=== PATIENT | female | born 1960 | race Two or more races ===

== ENCOUNTER 2022-10-02 11:15 | Inpatient (IN) | payer OTHER ==
[~2022-10-02] VITALS: Ht 167.6 cm; Wt 128.4 kg
--- NOTE | 2022-10-02 14:10 | NUR ---
PATIENT ADMITTED FROM [facility] WITH ADMITTING DX IS ACUTE STROKE ACCOMPANIED BY 2 shop mechanic WITH BIJAL. AO X3, SHE CAN VERBALIZE MONTH BUT UNABLE SAY TODAY'S DATE, AND HER BIRTHDAY, HER SPEECH IS CLEAR. SHE DENIES NUMB OR HEADACHE, ABLE TO MOVE ALL EXTREMITIES SALIMETRICALLY. NOTICED A-FIB ON WOOD TILE INSTALLATION HELPER AND DR. LEACH AWARE OF IT. EKG HAS BEEN DONE. NEURO CHECK AND NHIS SCALE DONE. WILL CONTINUE TO MONITOR.
[2022-10-02] MEDS ORDERED: ACETAMINOPHEN 325 MG TABLET PO PRN (16:00)
[2022-10-02] MEDS ORDERED: ONDANSETRON HCL/PF 4 MG/2 ML VIAL IVP PRN (16:00)
[2022-10-02 16:35] LABS: BASOPHILS % (AUTO) 0.3 % (0.0-2.0); EOSINOPHILS % (AUTO) 0.1 % (0.0-6.0); HEMATOCRIT 38 % (33-45); HEMOGLOBIN 12.1 g/dL (11.5-14.8); LYMPHOCYTES # (AUTO) 1.2 K/uL (0.8-4.8); LYMPHOCYTES % (AUTO) 24.5 % (20.0-44.0); MEAN CORPUSCULAR HGB CONC 32 g/dl (31.0-36.0); MEAN CORPUSCULAR VOLUME 91 fL (82-100); MONOCYTES # (AUTO) 1.3 K/uL (0.1-1.30); NEUTROPHILS # (AUTO) 2.5 K/uL (1.8-8.9); NEUTROPHILS % (AUTO) 50.1 % (43.0-81.0); PLATELET COUNT (AUTO) 215 K/uL (150-450); RED BLOOD CELL COUNT(AUTO) 4.16 MIL/uL (4.0-5.2); WHITE BLOOD COUNT (AUTO) 5.1 K/uL (4.3-11.0)
[2022-10-02 16:50] LABS: CALCIUM, SERUM 8.7 mg/dL (8.5-10.1); POTASSIUM 3.8 mmol/L (3.5-5.1)
[2022-10-02 16:54] LABS: ALBUMIN 3.1 g/dL (3.4-5.0); BILIRUBIN,TOTAL 1.1 mg/dL (0.2-1.0); TOTAL PROTEIN, SERUM 9.1 g/dL (6.4-8.2)
[2022-10-02 17:03] LABS: THYROID STIMULATING HORMONE 5.989 uIU/mL (0.358-3.74)
[2022-10-02 17:08] LABS: LYMPHOCYTES % (MANUAL) 16 % (16-48); MONOCYTES % (MANUAL) 27 % (0-11.0); NEUTROPHILS % (MANUAL) 57 (42-76)
[2022-10-02] MEDS: IV NS 0.9% 1,000 ML IV SCH (17:08)
[2022-10-02] MEDS: LISINOPRIL (5MG) 5 MG TABLET PO SCH (17:22)
[2022-10-02] MEDS: METOPROLOL TARTRATE 25 MG TABLET PO SCH (17:22)
[2022-10-02] MEDS: APIXABAN 5 MG TABLET PO SCH (17:24)
--- NOTE | 2022-10-02 18:15 | NUR ---
RN CLOSING NOTE PATIENT RESTING IN BED. IN NO ACUTE DISTRESS OBSERVED. RESPIRATORY EVEN AND UNLABORED IN ROOM AIR, NO SOB OR DESATURATION NOTED. SKIN IS WARM TO TOUCH KEEP CLEAN/DRY. PATIENT NOTICED A1C 6.[address] LEACH MADE AWARE. KEPT ELEVATED HOB FOR ENSURE AIRWAY/ASPIRATION PRECAUTION, AND LOWEST BED POSITION. BED ALARM IS ON AT ALL THE TIME FOR SAFETY. CALL LIGHT WITHIN REACH, WILL ENDORSE CORRECTIONS COUNSELOR.
--- NOTE | 2022-10-02 19:10 | NUR ---
1909 Report received from NIGEL Glass for transfer of care with questions answered.
--- NOTE | 2022-10-02 19:50 | NUR ---
1950 Received patient in bed with family members at bedside, patient awake and verbally responsive. Answers questions appropriately. On room air with saturation at 97%. Able to move upper and lower extremities with no limitations. Noted with clear speech and symmetrical face when assessed. Patient able to reposition self in bed independently. Peripheral IV site on left arm intact and secured with bandage. IV fluid infusing with no signs of infiltration noted. Kept clean and comfortable at this time. Call light placed within reach and instructed patient and family members to call for assistance.
[2022-10-02 20:00] VITALS: TEMP 98.3
[2022-10-02] MEDS: ATORVASTATIN 40 MG TABLET PO SCH (21:28)
--- NOTE | 2022-10-02 21:30 | NUR ---
2130 Patient in bed with complain of being hot. Noted peripheral IV out and youth nutritional monitor removed. Per patient she felt hot and started removing everything. Linens and gown changed. Kept patient comfortable. Peripheral IV replaced. Call light placed within reach, bed placed in the lowest position and side rails up for safety. Patient remains stable.
--- NOTE | 2022-10-02 21:50 | NUR ---
NEW IV INSERTED ON L HAND 22G. IV IS PATENT AND INTACT AT THIS TIME WITH GOOD BLOOD RETURN. INSTRUCTED PT TO KEEP IV SITE SECURED. PT TOLERATED WELL.
[2022-10-03] VITALS: BP 147/92; TEMP 98.3; O2SAT 98
--- NOTE | 2022-10-03 00:30 | NUR ---
0030 Patient awake and sitting on edge of bed. In no apparent distress. No complaint of pain and any discomfort. No changes in neuro status noted. Kept comfortable. All needs anticipated and attended. Call light placed within reach and reminded to call for assistance.
[2022-10-03 04:00] VITALS: BP 125/85; TEMP 98.2; O2SAT 96
[2022-10-03] MEDS: IV NS 0.9% 1,000 ML IV SCH ×2 (05:13→18:12)
[2022-10-03 05:51] LABS: BASOPHILS % (AUTO) 0.3 % (0.0-2.0); EOSINOPHILS % (AUTO) 0.1 % (0.0-6.0); HEMATOCRIT 38 % (33-45); HEMOGLOBIN 11.9 g/dL (11.5-14.8); LYMPHOCYTES % (AUTO) 17.3 % (20.0-44.0); MEAN CORPUSCULAR HGB CONC 32 g/dl (31.0-36.0); MEAN CORPUSCULAR VOLUME 91 fL (82-100); MONOCYTES # (AUTO) 1.9 K/uL (0.1-1.30); MONOCYTES % (AUTO) 31.2 % (2.0-12.0); NEUTROPHILS % (AUTO) 51.1 % (43.0-81.0); PLATELET COUNT (AUTO) 212 K/uL (150-450); RED BLOOD CELL COUNT(AUTO) 4.12 MIL/uL (4.0-5.2); WHITE BLOOD COUNT (AUTO) 5.9 K/uL (4.3-11.0)
--- NOTE | 2022-10-03 06:15 | NUR ---
0615 Patient awake and assisted to bathroom. Had BM and voided. Linens changed, patient gown changed and assisted patient back to bed. Able to tolerate activity. No SOB noted. Cont to deny pain. Placed call light within reach and instructed patient to call for assistance.
[2022-10-03 06:22] LABS: CALCIUM, SERUM 8.7 mg/dL (8.5-10.1); CREATININE 1.1 mg/dL (0.6-1.3); MAGNESIUM 1.8 mg/dL (1.8-2.4); PHOSPHORUS 3.8 mg/dL (2.5-4.9); POTASSIUM 4.2 mmol/L (3.5-5.1); TOTAL PROTEIN, SERUM 8.7 g/dL (6.4-8.2)
--- NOTE | 2022-10-03 07:00 | NUR ---
0700 Endorsed care to NIGEL Anton with questions answered.
--- NOTE | 2022-10-03 07:09 | NUR ---
DRAFTING DETAILER OPEN NOTE Patient awake and sitting on edge of bed. In no apparent distress. No complaint of pain and any discomfort. No changes in neuro status . PATIENT IS ON ROOM AIR , AMBULATED WITH ASSISTANCE.NO WOUND , ABLE TO SWALLOW. speech is clear , occasionally not cler , patient is alert , oriented times 3-4, iv acsess on the right hand 22 f iv fluid running at 75 ml/hr .bed side is at lowest position , call light within reavh will continue to fallow up
[2022-10-03 08:00] VITALS: BP 119/84; TEMP 98.2; O2SAT 95
[2022-10-03] MEDS: ASPIRIN EC 81 MG TABLET.DR PO SCH (08:13)
[2022-10-03] MEDS: LISINOPRIL (5MG) 5 MG TABLET PO SCH (08:14)
[2022-10-03] MEDS: METOPROLOL TARTRATE 25 MG TABLET PO SCH ×4 (08:14→18:09)
[2022-10-03] MEDS: APIXABAN 5 MG TABLET PO SCH ×2 (08:16→18:12)
[2022-10-03] MEDS ORDERED: DEXTROSE 50%-WATER 50 ML DISP.SYRIN IV PRN (08:30)
[2022-10-03] MEDS: BLOOD SUGAR DIAGNOSTIC 1 EACH STRIP IN SCH ×4 (09:21→22:18)
[2022-10-03] MEDS: INSULIN REGULAR, HUMAN 100 UNIT/ML 3 ML VIAL SQ PRN ×4 (09:23→22:19)
[2022-10-03 12:00] VITALS: BP 135/69; TEMP 98; O2SAT 94
[2022-10-03] MEDS ORDERED: OMEP20TA20 PO (13:24)
[2022-10-03 13:30] LABS: BASOPHILS % (MANUAL) 0 % (0.0-2.0); EOSINOPHILS % (MANUAL) 0 % (0-4); LYMPHOCYTES % (MANUAL) 19 % (16-48); MONOCYTES % (MANUAL) 27 % (0-11.0); NEUTROPHILS % (MANUAL) 54 (42-76)
[2022-10-03] MEDS ORDERED: IV NS 0.9% 250 ML IV ONE (13:30)
[2022-10-03] MEDS ORDERED: IOHEXOL-350 100 ML VIAL IV ONE (13:30)
[2022-10-03] MEDS ORDERED: CT SWABBABLE VALVE TRANS SET 1 EA INFUS.SET MC ONE (13:30)
[2022-10-03 16:00] VITALS: BP 151/71; TEMP 98.2; O2SAT 95
--- NOTE | 2022-10-03 18:20 | NUR ---
RN EBER CLOSING NOTE PATIENT RESTING IN BED. IN NO ACUTE DISTRESS OBSERVED. RESPIRATORY EVEN AND UNLABORED IN ROOM AIR, NO SOB OR DESATURATION NOTED. SKIN IS WARM TO TOUCH KEEP CLEAN/DRY. KEPT ELEVATED HOB FOR ENSURE AIRWAY/ASPIRATION PRECAUTION, AND LOWEST BED POSITION. BED ALARM IS ON AT ALL THE TIME FOR SAFETY. CALL LIGHT WITHIN REACH, WILL ENDORSE TURN SEWER.
[2022-10-03 20:00] VITALS: BP 114/65; TEMP 98.3; O2SAT 99
--- NOTE | 2022-10-03 20:00 | NUR ---
GLOBE CHANGER OPEN NOTE Patient awake and resting in bed alert oriented x3-4 and verbally responsive. breathing even and unlabored on room air and pt tolerating well. Pt is able to swallow. IV access on left hand 22g instact and patent. No s/s of infiltration. IV running 75 ml/hr. No complaint of pain and any discomfort. No acute distress noted. Pt is able to ambulate with assist. All safety measures in place. Bed side is at lowest position and locked. Side rails upx2. Placed call light within reavh will continue to fallow up
[2022-10-03] MEDS: ATORVASTATIN 40 MG TABLET PO SCH (22:11)
--- NOTE | 2022-10-03 22:19 | NUR ---
RN notes Pt blood sugar 123. No coverage given. No s/s of hyper/hypoglycemia. Will continue to monitor.
[2022-10-04] VITALS: BP 136/77; TEMP 98.5; O2SAT 99
[2022-10-04 04:00] VITALS: BP 136/68; TEMP 98.7; O2SAT 99
--- NOTE | 2022-10-04 06:45 | NUR ---
ARMHOLE FELLER HANDSTITCHING MACHINE CLOSING NOTE PATIENT RESTING IN BED. IN NO ACUTE DISTRESS NOTED. RESPIRATORY EVEN AND UNLABORED IN ROOM AIR, NO SOB OR DESATURATION NOTED. SKIN IS WARM TO TOUCH KEEP CLEAN/DRY. KEPT ELEVATED HOB FOR ENSURE AIRWAY/ASPIRATION PRECAUTION. BED IS IN LOCKED AND LOWEST POSITION. BED ALARM IS ON AT ALL THE TIME FOR SAFETY. ALL NEEDS ATTENDED. ALL DUE MEDS ARE GIVEN. CALL LIGHT WITHIN REACH, WILL ENDORSE AM SHIFT RN.
--- NOTE | 2022-10-04 07:30 | NUR ---
PLATING TANK OPERATOR OPENING NOTE: PATIENT RESTING IN BED. AOX 3. ABLE TO MAKE NEEDS KNOWN. ON RA 02SAT 98%. RESPIRATORY EVEN AND UNLABORED. NO SOB OR DESATURATION NOTED. SKIN IS WARM TO TOUCH KEEP CLEAN/DRY. BED IS IN LOCKED AND LOWEST POSITION. ALL NEEDS ATTENDED. ALL DUE MEDS ARE GIVEN. CALL LIGHT WITHIN REACH. BS 102 AT 0730
[2022-10-04] MEDS: BLOOD SUGAR DIAGNOSTIC 1 EACH STRIP IN SCH ×4 (07:40→21:49)
[2022-10-04 08:00] VITALS: BP 123/77; TEMP 98.3; O2SAT 99
[2022-10-04] MEDS: LISINOPRIL (5MG) 5 MG TABLET PO SCH (08:44)
[2022-10-04] MEDS: METOPROLOL TARTRATE 25 MG TABLET PO SCH ×2 (08:44→17:51)
[2022-10-04] MEDS: ASPIRIN EC 81 MG TABLET.DR PO SCH (08:44)
[2022-10-04] MEDS: APIXABAN 5 MG TABLET PO SCH ×2 (08:54→17:52)
[2022-10-04] MEDS: MORPHINE SULFATE INJ 2 MG/ML DISP.SYRIN IV PRN (08:56)
--- NOTE | 2022-10-04 10:45 | NUR ---
BEHAVIOR MANAGEMENT SPECIALIST NOTE: DR. ROGEL AT BEDSIDE
--- NOTE | 2022-10-04 10:52 | NUR ---
STATE WILDLIFE OFFICER NOTE: GEORGE MANUEL NP NEURO AT BEDSIDE.
[2022-10-04 12:00] VITALS: BP 145/77; TEMP 98.1; O2SAT 99
[2022-10-04] MEDS: INSULIN REGULAR, HUMAN 100 UNIT/ML 3 ML VIAL SQ PRN ×2 (12:06→21:49)
[2022-10-04 16:00] VITALS: BP 108/78; TEMP 98.6; O2SAT 99
--- NOTE | 2022-10-04 18:38 | NUR ---
SOFTWARE PROGRAM MANAGER CLOSING NOTE PATIENT RESTING IN BED. IN NO ACUTE DISTRESS NOTED. RESPIRATORY EVEN AND UNLABORED IN ROOM AIR, NO SOB OR DESATURATION NOTED. SKIN IS WARM TO TOUCH KEEP CLEAN/DRY. KEPT ELEVATED HOB FOR ENSURE AIRWAY/ASPIRATION PRECAUTION. BED IS IN LOCKED AND LOWEST POSITION. BED ALARM IS ON AT ALL THE TIME FOR SAFETY. ALL NEEDS ATTENDED. ALL DUE MEDS ARE GIVEN. CALL LIGHT WITHIN REACH.
--- NOTE | 2022-10-04 19:40 | NUR ---
RN OPENING NOTES RECEIVED PT IN BED, AWAKE, ALERT/ORIENTED X3-4 AND VERBALLY RESPONSIVE. DAUGHTER AT BEDSIDE. ON ROOM AIR AND PT TOLERATED WELL. BREATHING EVEN AND UNLABORED. IV ACCESS ON LFA#22G INTACT AND PATENT. NO S/S OF INFILTRATIONS. C/O PAIN ON THE BACK OF THE HEAD. NO C/O NAUSEA/VOMITING. ABLE TO AMBULATE. ALL SAFETY MEASURES IN PLACE. BED IN LOWEST POSITION AND LOCKED. SIDE RAILS UP X2, PLACE CALL LIGHT WITH IN REACH. WILL CONTINUE TO MONITOR
[2022-10-04 20:00] VITALS: BP 113/62; TEMP 97.9; O2SAT 96
--- NOTE | 2022-10-04 20:10 | NUR ---
RN NOTES: ASKED PT IF SHE WANTS GET PAIN MEDICATION FOR BACK OF THE HEAD. MENTIONED, SHE IS FINE AT THIS MOMENT. SHE DOESN'T WANT ANY PAIN MEDS. SHE IS GOING TO LET THE NURSE KNOW IF SHE NEEDS ANY.
[2022-10-04] MEDS: ATORVASTATIN 40 MG TABLET PO SCH (21:37)
--- NOTE | 2022-10-04 21:50 | NUR ---
RN NOTES: PT'S BLOOD SUGAR 127. NO COVERAGE NEEDED. NO S/S OF HYPER/HYPOGLYCEMIA. WILL CONTINUE TO MONITOR
[2022-10-05] VITALS: BP 116/81; TEMP 97.7; O2SAT 100
[2022-10-05 04:00] VITALS: BP 135/97; TEMP 98.2; O2SAT 97
--- NOTE | 2022-10-05 06:41 | NUR ---
RN CLOSING NOTES PT IN BED, SLEEPING BUT EASILY AROUSABLE, AWAKE, ALERT/ORIENTED X3-4 AND VERBALLY RESPONSIVE. ON ROOM AIR AND PT TOLERATED WELL. O2 SAT 97%. BREATHING EVEN AND UNLABORED. IV ACCESS ON LFA#22G INTACT AND PATENT. NO S/S OF INFILTRATIONS. NO C/O PAIN OR DISCOMFORT. NO ACUTE DISTRESS. ABLE TO AMBULATE. ALL DUE MEDS GIVEN ORDERED. ALL SAFETY MEASURES IN PLACE. BED IN LOWEST POSITION AND LOCKED. SIDE RAILS UP X2, PLACE CALL LIGHT WITH IN REACH. WILL ENDORSE TO MORNING SHIFT NURSE.
--- NOTE | 2022-10-05 07:35 | NUR ---
COMMODITY LEAD OPENING NOTE: PATIENT RESTING IN BED. AOX 3. ABLE TO MAKE NEEDS KNOWN. ON RA 02SAT 98%. RESPIRATORY EVEN AND UNLABORED. NO SOB OR DESATURATION NOTED. SKIN IS WARM TO TOUCH KEEP CLEAN/DRY. BED IS IN LOCKED AND LOWEST POSITION. NEEDS ATTENDED PROMPTLY. ALL DUE MEDS ARE GIVEN. CALL LIGHT WITHIN REACH. BS 127 AT 0730
[2022-10-05] MEDS: BLOOD SUGAR DIAGNOSTIC 1 EACH STRIP IN SCH ×4 (07:43→21:27)
[2022-10-05 08:00] VITALS: BP 135/99; TEMP 98.3; O2SAT 97
[2022-10-05] MEDS: ASPIRIN EC 81 MG TABLET.DR PO SCH (08:29)
[2022-10-05] MEDS: METOPROLOL TARTRATE 25 MG TABLET PO SCH ×2 (08:30→17:20)
[2022-10-05] MEDS: LISINOPRIL (5MG) 5 MG TABLET PO SCH (08:30)
[2022-10-05] MEDS: APIXABAN 5 MG TABLET PO SCH ×2 (08:31→17:21)
[2022-10-05] MEDS: MORPHINE SULFATE INJ 2 MG/ML DISP.SYRIN IV PRN (11:52)
[2022-10-05] MEDS: INSULIN REGULAR, HUMAN 100 UNIT/ML 3 ML VIAL SQ PRN ×3 (11:56→21:28)
[2022-10-05 12:00] VITALS: BP 112/63; TEMP 98.5; O2SAT 97
[2022-10-05 16:00] VITALS: BP 154/85; TEMP 98; O2SAT 97
--- NOTE | 2022-10-05 18:17 | NUR ---
CHIEF VENDOR QUALITY CLOSING NOTE PATIENT RESTING IN BED. AOX4. ABLE TO MAKE NEEDS KN0WN.IN NO ACUTE DISTRESS NOTED. RESPIRATORY EVEN AND UNLABORED IN ROOM AIR, NO SOB OR DESATURATION NOTED. SKIN IS WARM TO TOUCH KEEP CLEAN/DRY. KEPT ELEVATED HOB FOR ENSURE AIRWAY/ASPIRATION PRECAUTION. BED IS IN LOCKED AND LOWEST POSITION. BED ALARM IS ON AT ALL THE TIME FOR SAFETY. ALL NEEDS ATTENDED. ALL DUE MEDS ARE GIVEN. CALL LIGHT WITHIN REACH
--- NOTE | 2022-10-05 19:39 | NUR ---
RN OPENING NOTES RECEIVED PT IN BED, AWAKE, ALERT/ORIENTED X3-4 AND VERBALLY RESPONSIVE. FAMILY MEMBERS AT BEDSIDE. ON ROOM AIR AND PT TOLERATED WELL. BREATHING EVEN AND UNLABORED. IV ACCESS ON LFA#22G INTACT AND PATENT. NO S/S OF INFILTRATIONS. STILL C/O PAIN ON THE BACK OF THE HEAD. NO C/O NAUSEA/VOMITING. MENTIONED SHE WILL TAKE PAIN MEDICATION AT NIGHT. ABLE TO AMBULATE TO THE RESTROOM. ALL SAFETY MEASURES IN PLACE. BED IN LOWEST POSITION AND LOCKED. SIDE RAILS UP X2, PLACE CALL LIGHT WITH IN REACH. WILL CONTINUE TO MONITOR
[2022-10-05 20:00] VITALS: BP 123/84; TEMP 97.5; O2SAT 97
[2022-10-05] MEDS: ATORVASTATIN 40 MG TABLET PO SCH (21:23)
[2022-10-06] VITALS: BP 120/80; TEMP 97.6; O2SAT 95
[2022-10-06 04:00] VITALS: BP 138/100; TEMP 97.5; O2SAT 93
--- NOTE | 2022-10-06 06:39 | NUR ---
RN CLOSING NOTES PT IN BED, SLEEPING BUT EASILY AROUSABLE, AWAKE, ALERT/ORIENTED X3-4 AND VERBALLY RESPONSIVE. ON ROOM AIR AND PT TOLERATED WELL. O2 SAT 93%. BREATHING EVEN AND UNLABORED. IV ACCESS ON LFA#22G INTACT AND PATENT. NO S/S OF INFILTRATIONS. NO C/O PAIN OR DISCOMFORT. NO ACUTE DISTRESS. ABLE TO AMBULATE TO THE RESTROOM. ALL DUE MEDS GIVEN ORDERED. ALL SAFETY MEASURES IN PLACE. BED IN LOWEST POSITION AND LOCKED. SIDE RAILS UP X2, PLACE CALL LIGHT WITH IN REACH. WILL ENDORSE TO MORNING SHIFT NURSE.
--- NOTE | 2022-10-06 07:15 | NUR ---
PRINTER SLOTTER OPERATOR OPENING NOTES Received pt awake in bed AOX3-4. No cpmplaints of pain or discomfort at this time. Pt is currently on RA and tolerating it well with 02 saturation at 98%. IV access on LFA 22G patent and intact. HOB elevated to pts comfort. Siderails up at all times. Will continue to monitor.
[2022-10-06] MEDS: BLOOD SUGAR DIAGNOSTIC 1 EACH STRIP IN SCH ×4 (07:46→22:24)
[2022-10-06 08:00] VITALS: BP 145/85; TEMP 97.8; O2SAT 100
[2022-10-06] MEDS: METOPROLOL TARTRATE 25 MG TABLET PO SCH (08:11)
[2022-10-06] MEDS: ASPIRIN EC 81 MG TABLET.DR PO SCH (08:11)
[2022-10-06] MEDS: LISINOPRIL (5MG) 5 MG TABLET PO SCH (08:11)
[2022-10-06] MEDS: APIXABAN 5 MG TABLET PO SCH ×2 (08:13→17:02)
[2022-10-06] MEDS: METFORMIN 500 MG TABLET PO SCH ×2 (11:24→17:01)
[2022-10-06 12:00] VITALS: BP 142/80; TEMP 97.7; O2SAT 100
[2022-10-06] MEDS: INSULIN REGULAR, HUMAN 100 UNIT/ML 3 ML VIAL SQ PRN ×2 (12:00→22:26)
[2022-10-06 16:00] VITALS: BP 138/83; TEMP 98.3; O2SAT 100
[2022-10-06] MEDS: METOPROLOL TARTRATE 50 MG TABLET PO SCH (17:02)
--- NOTE | 2022-10-06 17:37 | NUR ---
CLINICAL PSYCHOLOGIST NOTES Results from venous doppler of left upper extremity relayed to Dr. Garcia with no new orders at this time.
--- NOTE | 2022-10-06 18:20 | NUR ---
CLASS A REGIONAL DRIVERS NOTES Family and pt requested cortisone cream for the left upper extremity. Dr. Garcia made aware and said no to the order but to start pt on Vancomycin IV Pharmacy to dose.
[2022-10-06] MEDS ORDERED: VANCOMYCIN 1 GM in IV D5W 250 ML IV SCH (18:30)
--- NOTE | 2022-10-06 18:40 | NUR ---
BITUMEN PLANT OPERATOR CLOSING NOTES All due meds and tx given as ordered. Pt tolerated everything well. All needs attended to. Call light within reach. Will endorse to oncoming nurse.
--- NOTE | 2022-10-06 19:15 | NUR ---
RN NOTE Report received from MATHEW Pinto, patient in bed, AO x 4, in no acute distress, saturation at 100% on room air, Afib on the monitor HR is 86. IV line at LFA 22g patent and flushing wellsaline locked. Patient is ambulatory with FWW and assist. Safety measures in place, bed is locked and at lowest position, HOB elevated, call light within reach of patient. Will monitor and reassess.
[2022-10-06] MEDS ORDERED: VANCOMYCIN 1.25 GM in IV D5W 250 ML IV ONE (19:30)
[2022-10-06 20:00] VITALS: BP 153/74; TEMP 98.6; O2SAT 100
[2022-10-06] MEDS: ATORVASTATIN 40 MG TABLET PO SCH (22:20)
[2022-10-07 00:02] VITALS: BP 143/78; TEMP 97.5; O2SAT 100
[2022-10-07 04:00] VITALS: BP 150/70; TEMP 97.9; O2SAT 98
--- NOTE | 2022-10-07 07:25 | NUR ---
RN NOTE PT REMAINS ON 2L VIA NC. EPISODES OF AFLUTTER AND SKIPPED BEAT WITH LOWEST HR AT 26 NON SUSTAINING OCCURRED OVERNIGHT, EKG REVEALED AFIB AT RATE OF 75-100'S. DR DSOUZA WAS MADE AWARE.
--- NOTE | 2022-10-07 07:30 | NUR ---
RN NOTE RECEIVED PT AWAKE, A/O X4 ON 2L VIA NC. HEART MONITOR SHOWS SARAH 78-80, AWARE, IV REMOVED DUE TO INFILTRATION. WILL CONTINUE TO MONITOR
--- NOTE | 2022-10-07 07:45 | NUR ---
LINUX ENGINEER NOTE Patient in bed, AO x 4, in no acute distress, saturation at 100% on room air, the monitor HR is 81. IV line not present. Patient is ambulatory with assist. Safety measures in place, bed is locked and at lowest position, HOB elevated, call light within reach of patient. Will monitor and reassess. Addendum: 10/08/22 at 0218 by KIMMY OWENS RN wrong time document
[2022-10-07 08:00] VITALS: BP 121/81; TEMP 98.2; O2SAT 96
[2022-10-07] MEDS: BLOOD SUGAR DIAGNOSTIC 1 EACH STRIP IN SCH ×4 (08:08→21:21)
[2022-10-07] MEDS: METFORMIN 500 MG TABLET PO SCH ×2 (08:15→16:53)
[2022-10-07] MEDS: METOPROLOL TARTRATE 50 MG TABLET PO SCH ×2 (08:16→16:53)
[2022-10-07] MEDS: LISINOPRIL (5MG) 5 MG TABLET PO SCH (08:16)
[2022-10-07] MEDS: APIXABAN 5 MG TABLET PO SCH ×2 (08:18→16:54)
[2022-10-07 12:00] VITALS: BP 125/83; TEMP 98.5; O2SAT 96
[2022-10-07] MEDS: INSULIN REGULAR, HUMAN 100 UNIT/ML 3 ML VIAL SQ PRN (12:41)
[2022-10-07] MEDS: MORPHINE SULFATE INJ 2 MG/ML DISP.SYRIN IV PRN (14:37)
--- NOTE | 2022-10-07 15:12 | NUR ---
SW will follow up.
[2022-10-07 16:00] VITALS: BP 101/77; TEMP 98.4; O2SAT 97
--- NOTE | 2022-10-07 18:55 | NUR ---
RN CLOSING NOTES PT IN BED, AWAKE, ALERT/ORIENTED X3-4 AND VERBALLY RESPONSIVE. ON ROOM AIR AND PT TOLERATED WELL. O2 SAT 96%. BREATHING EVEN AND UNLABORED. NO IV ACCESSNO C/O PAIN OR DISCOMFORT. NO ACUTE DISTRESS. ABLE TO AMBULATE TO THE RESTROOM WITH ASSISTANCE. ALL DUE MEDS GIVEN ORDERED. ALL SAFETY MEASURES IN PLACE. BED IN LOWEST POSITION AND LOCKED. SIDE RAILS UP X2, PLACE CALL LIGHT WITH IN REACH. WILL ENDORSE TO PM SHIFT NURSE FOR REGAN
--- NOTE | 2022-10-07 19:00 | NUR ---
WAFER PRODUCTION LEAD WORKER OPEN NOTE Patient in bed, AO x 4, in no acute distress, saturation at 100% on room air, the monitor HR is 81. IV line not present. Patient is ambulatory with assist. Safety measures in place, bed is locked and at lowest position, HOB elevated, call light within reach of patient. Will continue to monitor.
[2022-10-07 20:00] VITALS: BP 130/81; TEMP 98.1; O2SAT 99
[2022-10-07] MEDS: ATORVASTATIN 40 MG TABLET PO SCH (21:21)
--- NOTE | 2022-10-07 21:22 | NUR ---
Patient refused IV line insertion. Explained risks and benefits, pt still refused.
[2022-10-08 04:00] VITALS: BP 123/79; TEMP 97.8; O2SAT 98
--- NOTE | 2022-10-08 07:00 | NUR ---
GOLF BALL WINDER CLOSING NOTES PT SLEEPING IN BED, ALERT/ORIENTED X3-4 AND VERBALLY RESPONSIVE. ON ROOM AIR AND PT TOLERATED WELL. O2 SAT 98%. BREATHING EVEN AND UNLABORED. PT REFUSED IV ACCESS. NO C/O PAIN OR DISCOMFORT. NO ACUTE DISTRESS. ABLE TO AMBULATE TO THE RESTROOM WITH ASSISTANCE. ALL DUE MEDS GIVEN ORDERED. ALL SAFETY MEASURES IN PLACE. BED IN LOWEST POSITION AND LOCKED. SIDE RAILS UP X2, PLACE CALL LIGHT WITH IN REACH. WILL ENDORSE CARE TO AM SHIFT RN.
--- NOTE | 2022-10-08 07:32 | NUR ---
MS RN OPENING NOTES PT RECEIVED IN BED AWAKE ALERT AND ORIENTED X4. ON ROOM AIR, BREATHING EVEN AND UNLABORED WITH NO S/S OF SOB OR RESPIRATORY DISTRESS. NO IV ACCESS. ALL SAFETY MEASURES IN PLACE WITH BED IN LOWEST POSITION AND LOCKED, SIDE RAILS UP X2, CALL LIGHT AND BEDSIDE TABLE WITHIN REACH. WILL CONTINUE TO MONITOR.
[2022-10-08 08:00] VITALS: BP 125/75; TEMP 98.3; O2SAT 100
[2022-10-08] MEDS: BLOOD SUGAR DIAGNOSTIC 1 EACH STRIP IN SCH ×4 (08:14→21:25)
[2022-10-08] MEDS: INSULIN REGULAR, HUMAN 100 UNIT/ML 3 ML VIAL SQ PRN ×3 (08:14→17:21)
[2022-10-08] MEDS: METFORMIN 500 MG TABLET PO SCH ×2 (08:34→17:20)
[2022-10-08] MEDS: LISINOPRIL (5MG) 5 MG TABLET PO SCH (08:34)
[2022-10-08] MEDS: METOPROLOL TARTRATE 50 MG TABLET PO SCH ×2 (08:35→17:20)
[2022-10-08] MEDS: APIXABAN 5 MG TABLET PO SCH ×2 (08:38→17:20)
[2022-10-08 08:50] LABS: CALCIUM, SERUM 8.7 mg/dL (8.5-10.1); CREATININE 0.8 mg/dL (0.6-1.3)
[2022-10-08] MEDS ORDERED: VANCOMYCIN 1.25 GM in IV D5W 250 ML IV SCH (12:00)
[2022-10-08] MEDS: CLINDAMYCIN HCL 150 MG CAPSULE PO SCH ×2 (13:37→17:20)
[2022-10-08] MEDS: ONDANSETRON 4 MG TAB.RAPDIS PO PRN ×2 (14:11→20:16)
[2022-10-08 16:00] VITALS: BP 119/66; TEMP 98.7; O2SAT 100
[2022-10-08] MEDS ORDERED: MINERAL OIL/PETROL OINT 396 GM JAR TP PRN (17:00)
--- NOTE | 2022-10-08 19:30 | NUR ---
MS RN OPENING NOTE RECEIVED PATIENT IN BED, AWAKE, ALERT AND ORIENTED X4. ABLE TO MAKE NEEDS KNOWN. AFEBRILE AND NOT IN ANY FORM OF ACUTE DISTRESS. ON O2 INHALATION VIA NASAL CANNULA AT 2LPM. C/O MILD ABDOMINAL DISCOMFORT AFTER TAKING PO ATB. REFUSED IV ACCESS AT THIS TIME. SAFETY MEASURES IN PLACE. KEPT BED IN LOCKED AND IN LOW POSITION. SIDE RAILS UP X2. ADVISED TO USE THE CALL LIGHT WHEN IN NEED OF ASSISTANCE.
--- NOTE | 2022-10-08 19:34 | NUR ---
MS RN CLOSING NOTES PT IN BED AWAKE ALERT AND ORIENTED X4. ON ROOM AIR SATING AT 100%, BREATHING EVEN AND UNLABORED WITH NO S/S OF SOB OR RESPIRATORY DISTRESS. NO IV ACCESS. ALL DUE MEDS GIVEN AND PATIENT KEPT CLEAN AND COMFORTABLE. ALL DUE MEDS GIVEN AND PATIENT KEPT CLEAN AND COMFORTABLE. ALL SAFETY MEASURES IN PLACE WITH BED IN LOWEST POSITION AND LOCKED, SIDE RAILS UP X2, CALL LIGHT AND BEDSIDE TABLE WITHIN REACH. WILL ENDORSE TO ONCOMING SHIFT FOR REGAN.
[2022-10-08 20:00] VITALS: BP 108/65; TEMP 97.9; O2SAT 98
[2022-10-08] MEDS: ATORVASTATIN 40 MG TABLET PO SCH (21:25)
[2022-10-09 04:00] VITALS: BP 111/84; TEMP 98; O2SAT 100
--- NOTE | 2022-10-09 06:30 | NUR ---
MS RN CLOSING NOTE PATIENT IN BED, ASLEEP BUT EASY TO AROUSE AND RESPONSIVE. ALERT AND ORIENTED X4. ABLE TO MAKE NEEDS KNOWN. AFEBRILE AND NOT IN ANY FORM OF ACUTE DISTRESS. ON O2 INHALATION VIA NASAL CANNULA AT 2LPM. STILL REFUSING IV ACCESS AT THIS TIME. MONITORED FOR ANY S/SX. OF HYPO/HYPERGLYCEMIA. MEDICATED ORDERED. CONTINUOUS ON PO ATB, MONITORED FOR ANY ADVERSE REACTION. SAFETY MEASURES IN PLACE. KEPT BED IN LOCKED AND IN LOW POSITION. SIDE RAILS UP X2. ADVISED TO USE THE CALL LIGHT WHEN IN NEED OF ASSISTANCE. ALL NURSING NEEDS ATTENDED. ENDORSED TO INCOMING SHIFT FOR CONTINUITY OF CARE.
[2022-10-09] MEDS: BLOOD SUGAR DIAGNOSTIC 1 EACH STRIP IN SCH ×4 (06:59→22:03)
--- NOTE | 2022-10-09 07:00 | NUR ---
RN OPENING NOTE PATIENT ALERT AND ORIENTED X4. ABLE TO MAKE NEEDS KNOWN. AFEBRILE AND NOT IN ANY FORM OF ACUTE DISTRESS OR PAIN. ON O2 INHALATION VIA NASAL CANNULA AT 2LPM. NO IV ACCESS IN PLACE, PATIENT REFUSING. SAFETY MEASURES IN PLACE. BED IN LOCKED AND IN LOW POSITION. SIDE RAILS UP X2. CALL LIGHT AND TABLE WITHIN REACH, HOB ELEVATED. WILL CONTINUE TO MONITOR.
[2022-10-09 08:00] VITALS: BP 111/69; TEMP 98.3; O2SAT 100
[2022-10-09] MEDS: APIXABAN 5 MG TABLET PO SCH ×2 (08:31→17:19)
[2022-10-09] MEDS: METFORMIN 500 MG TABLET PO SCH ×2 (08:31→17:20)
[2022-10-09] MEDS: ONDANSETRON 4 MG TAB.RAPDIS PO PRN ×3 (08:35→17:20)
[2022-10-09] MEDS: CLINDAMYCIN HCL 150 MG CAPSULE PO SCH ×3 (08:35→17:20)
[2022-10-09] MEDS: LISINOPRIL (5MG) 5 MG TABLET PO SCH (09:07)
[2022-10-09] MEDS: METOPROLOL TARTRATE 50 MG TABLET PO SCH ×2 (09:07→17:21)
--- NOTE | 2022-10-09 09:55 | NUR ---
RN NOTE DOCTOR DERDERIAN AT BEDSIDE, PER MD, OK TO GIVE ZOFRAN BEFORE GIVING THE ANTIBIOTICS.
[2022-10-09] MEDS ORDERED: LISI-768 PO (11:00)
[2022-10-09] MEDS ORDERED: METO50TA16 PO (11:00)
[2022-10-09] MEDS ORDERED: CLIN-27 PO (11:00)
[2022-10-09] MEDS ORDERED: APIX5TAB PO (11:00)
[2022-10-09] MEDS ORDERED: ATOR40TA PO (11:00)
[2022-10-09] MEDS ORDERED: METF-440 PO (11:00)
[2022-10-09] MEDS: INSULIN REGULAR, HUMAN 100 UNIT/ML 3 ML VIAL SQ PRN ×2 (12:37→22:03)
--- NOTE | 2022-10-09 13:05 | NUR ---
RN NOTE DOCTOR PEBBLES WAS CALLED TO REPORT THAT PATIENT'S OXYGEN WAS REMOVED PER HIS REQUEST AND PATIENT'S 02 SATURATION HAS BEEN RAGING FROM 94 TO 98% ON ROOM. RECEIVED ORDER TO CONTINUE TO KEEP PATIENT ON ROOM AIR. ORDERS CARRIED OUT.
[2022-10-09 16:00] VITALS: BP 108/79; TEMP 98.3; O2SAT 98
--- NOTE | 2022-10-09 18:41 | NUR ---
RN CLOSING NOTE PATIENT ALERT AND ORIENTED X4. ABLE TO MAKE NEEDS KNOWN. AFEBRILE AND NOT IN ANY FORM OF ACUTE DISTRESS OR PAIN. ON ROOM AIR WITH NO SOB, 02 SAT AT 96%. NO IV ACCESS IN PLACE, PATIENT CONTINUES TO REFUSING. PATIENT WAS REPOSITION EVERY TWO HOURS. SAFETY MEASURES IN PLACE. BED IN LOCKED AND IN LOW POSITION. SIDE RAILS UP X2. CALL LIGHT AND TABLE WITHIN REACH, HOB ELEVATED. REPORT WILL BE GIVEN TO COOLER SERVICER NURSE FOR CONTINUING OF CARE.
--- NOTE | 2022-10-09 19:15 | NUR ---
ADJUNCT TRAINER OPENING NOTES RECEIVED PT RESTING IN BED, AFEBRILE, AWAKE, ALERT, BREATHING EVEN AND UNLABORED, 0 C/O PAIN, SKIN WARM AND DRY TO TOUCH, PEDAL PULSES PALPABLE, NAD NOTED AT THIS TIME, BED IN LOWEST AND LOCKED POSITION, WILL CONTINUE TO MONITOR
[2022-10-09 20:00] VITALS: BP 103/68; TEMP 98.3; O2SAT 93
--- NOTE | 2022-10-09 21:59 | NUR ---
PATIENT COMPLAINING OF PALPITATIONS/WEIRD CHEST SENSATION, SHE STATED SHE FELT FOR THE LAST 20 MIN, PLACED ON TELE MONITOR 12 BEATS V-TACH SHOWED TELE MONITOR, BUT ONLY 2 LEADS, SENT PIC TO [facility] AND PER HIM SEND IT TO VICE PRESIDENT OF PRODUCT MARKETING [employer], SENT IT TO DR DSOUZA AND PER HIM, IS ONLY AFIB CONTROLLED, ASKED DR DSOUZA IF WE CAN KEEP HER ON TELE FOR NOW, AND PER HIM OK TO KEEP PATIENT ON TELEMETRY, ORDER NOTED AND CARRIED OUT, WILL CONTINUE TO MONITOR, PT STATED THAT SENSATION SUBSIDED.
[2022-10-09] MEDS: ATORVASTATIN 40 MG TABLET PO SCH (22:03)
[2022-10-10 04:00] VITALS: BP 136/76; TEMP 98; O2SAT 93
--- NOTE | 2022-10-10 07:00 | NUR ---
RN OPENING NOTE PATIENT ALERT AND ORIENTED X4. ABLE TO MAKE NEEDS KNOWN. AFEBRILE AND WITH NO ACUTE DISTRESS OR PAIN. ON ROOM AIR WITH NO SOB, 02 SAT AT 98%. ON TELE MONITOR SR 95. NO IV ACCESS IN PLACE, PATIENT CONTINUES TO REFUSING, MD AWARE. SAFETY MEASURES IN PLACE. BED IN LOCKED AND IN LOW POSITION. SIDE RAILS UP X2. CALL LIGHT AND TABLE WITHIN REACH, HOB ELEVATED. WILL CONTINUE TO MONITOR
[2022-10-10 08:00] VITALS: BP 132/60; TEMP 98.3; O2SAT 98
[2022-10-10] MEDS: BLOOD SUGAR DIAGNOSTIC 1 EACH STRIP IN SCH ×3 (08:06→16:37)
[2022-10-10] MEDS: METFORMIN 500 MG TABLET PO SCH ×2 (08:25→16:41)
[2022-10-10] MEDS: CLINDAMYCIN HCL 150 MG CAPSULE PO SCH ×3 (08:25→16:41)
[2022-10-10] MEDS: METOPROLOL TARTRATE 50 MG TABLET PO SCH ×2 (08:25→16:42)
[2022-10-10] MEDS: LISINOPRIL (5MG) 5 MG TABLET PO SCH (08:26)
[2022-10-10] MEDS: APIXABAN 5 MG TABLET PO SCH ×2 (08:28→16:43)
[2022-10-10] MEDS: ONDANSETRON 4 MG TAB.RAPDIS PO PRN ×2 (08:31→12:31)
[2022-10-10] MEDS: INSULIN REGULAR, HUMAN 100 UNIT/ML 3 ML VIAL SQ PRN (12:26)
--- NOTE | 2022-10-10 13:40 | NUR ---
PHQ-9: adz worker met with patient and conducted a PHQ-9 (Post Stroke Depression Screening) in which the patient score of a level of 3 for depression. Patient does not require a psychiatric consult at this time.
--- NOTE | 2022-10-10 13:40 | NUR ---
Social Work Stroke Resources: apron worker met with patient and provided stroke referrals such as: Stroke Family Warmline at (4-073-3-STROKE) and additional information on caring for a stroke survivor ( ). apron worker also educated patient on the signs of Stroke and to immediately call 911. apron worker provided education on the signs of stroke and provided educational packet with information: Dietary food, what stroke is, risks, emotional support, finding support, medical management, and effects of stroke.
--- NOTE | 2022-10-10 13:43 | NUR ---
SW consult: The patient 62 year old female that came to [facility] ER due to a stroke. She is retired [place] [address] [place] MIGUEL A Narvaez. Patient lost her house in [place] recently and moved in with her daughter right before she had a stroke. Patient is alert and oriented X4. Patient was friendly and easy to talk to when conducting an assessment. Patient denied depression, SI/HI, visual/auditory hallucinations. DC Plan: [place] [facility] [place] MIGUEL A Narvaez Stroke Resources: Stroke Empowerment guide.
[2022-10-10 16:00] VITALS: BP 139/67; TEMP 98.2; O2SAT 95
[2022-10-10 16:42] VITALS: BP 139/67
--- NOTE | 2022-10-10 17:20 | NUR ---
RN NOTE PATIENT WAS DISCHARGE HOME IN QA STABLED CONDITION, VITALS WITHIN NORMAL LIMITS, ON ROOM AIR, 02 SATURATION 95% WITH COMPLAIN OF PAIN, NO DISTRESS OR SOB. PATIENT HAD NO IV ACCESS. PICTURES TAKEN FOR DOCUMENTATION FROM HER LEFT AND RIGHT ARM. SKIN INTACT, BRUISES NOTED. ALL DISCHARGE FORMS SIGNED ALONG WITH BELONGINGS. PATIENT LEFT WITH DAUGHTER VIA PRIVATE CAR AND WHEELED OUTSIDE BY KE MONREAL. ALL MEDICATIONS WERE GIVEN PER MD ORDERS AND ALL NEEDS TENDED TO.
== END 2022-10-10 17:17 | disposition home health service (06) | DRG 45 ==
LOC: TELE1 13:46 → MEDSG1 10-07 10:10 → TELE1 10-10 08:04
PROVIDERS: ADMIT Internal Medicine; ATTEND Internal Medicine
DX: I63.40 Cerebral infarction due to embolism of unspecified cerebral artery (principal); D68.69 Other thrombophilia; I82.612 Acute embolism and thrombosis of superficial veins of left upper extremity; R47.01 Aphasia; I50.9 Heart failure, unspecified; I48.91 Unspecified atrial fibrillation; E04.1 Nontoxic single thyroid nodule; E11.9 Type 2 diabetes mellitus without complications; L03.114 Cellulitis of left upper limb; I11.0 Hypertensive heart disease with heart failure; R29.702 NIHSS score 2; E66.01 Morbid (severe) obesity due to excess calories; Z87.891 Personal history of nicotine dependence; Z68.42 Body mass index [BMI] 45.0-49.9, adult; Z79.84 Long term (current) use of oral hypoglycemic drugs
CPT/HCPCS: 36415; 70450-TC; 70496-TC; 70498-TC; 76536-TC; 80048-TC; 80053-TC; 80061-TC; 80202-TC; 82962-TC; 83605-TC; 83735-TC; 84100-TC; 84439-TC; 84443-TC; 85025-TC; 87081-TC; 92507-TC; 92521; 92526; 92611-TC; 93307-TC; 93971-TC; 97110-TC; 97116-TC; 97530-TC; 97535-TC; A4223; G0378; J1815; J2270; J3370; J3490; J7030; J7050; J7060; Q0162; Q9967